=== PATIENT | female | born 1970 | race Caucasian/White ===

== ENCOUNTER 2018-05-24 07:45 | Day surgery (SDC) | payer BC ==
[~2018-05-24] VITALS: Ht 149.9 cm; Wt 55.0 kg
[2018-05-24] VITALS (13 sets, daily range): BP systolic 102–123; BP diastolic 56–68; PULSE 55–108; RESP 12–21; Ht 149.9 cm; Wt 55.0 kg
[~2018-05-24 07:45] MED LIST: CEFAZOLIN 2 GM/50 ML (PMX) 50 ML IVPB ONE; SOD CHLORIDE 0.9% 1,000 ML IV SCH
[2018-05-24] MEDS ORDERED: FER325 PO (11:31)
--- NOTE | 2018-05-24 14:14 | PREAC ---
Date/Time of Note Date/Time of Note DATE: 05/24/18 TIME: 14:13 Anesthesia Eval and Record Evaluation Time Pre-Procedure Interview DATE: 05/24/18 TIME: 14:13 Age 48 Sex female NPO: 8 hrs Preoperative diagnosis right breast DCIS Planned procedure right needle directed partial mastectomy Past Medical History Past Medical History: Includes Heme: Anemia Surgery & Anesthesia Issues No known issue Meds Anticoagulation: No Beta Savana within 24 hr: No Reason Beta Savana not given: Pt. not on B-Savana Reported Medications Ferrous Sulfate* (Ferrous Sulfate*) 325 Mg Tabec, 325 MG PO DAILY, TAB 05/24/18 Current Medications Sodium Chloride 1,000 ml @ 75 mls/hr [id number] IV ; Start 05/24/18 at 07:00; Stop 05/24/18 at 20:19 Meds reviewed: Yes Allergies Coded Allergies: No Known Drug Allergies (Verified Allergy, Unknown, 05/24/18) Allergies Reviewed: Yes Labs/Studies Labs Reviewed: Reviewed by anesthesiologist test: Negative Pre-procedure Exam Last vitals Vital Signs Date Temp Pulse Resp B/P (MAP) Pulse Ox O2 O2 Flow FiO2 Time Delivery Rate 05/24/18 99.1 55 18 123/59 100 Room Air 10:49 (80) Airway: Adequate mouth opening Mallampati: Mallampati I Teeth: Normal Lung: Normal Heart: Normal ASA Physical Status ASA physical status: 2 Emergency: None Planned Anesthetic General/MAC: ETT Pre-operative Attestations Prior to commencing anesthesia and surgery, the patient was re-evaluated, there was verification of: *The patient's identity *The results of appropriate recent lab work and preoperative vital signs *The above evaluation not changing prior to induction *Anesthetic plan, risk benefits, alternative and complications discussed with patient/family; questions answered; patient/family understands, accepts and wishes to proceed. BRANDON CARTY May 24, 2018 14:14
[2018-05-24] MEDS ORDERED: LIDOCAINE 100 MG SYRINGE ONE (14:19)
[2018-05-24] MEDS ORDERED: MIDAZOLAM 1 MG/ML 2 ML INJ ONE (14:19)
[2018-05-24] MEDS ORDERED: PROPOFOL 100 ML ONE (14:19)
[2018-05-24] MEDS ORDERED: DEXAMETHASONE 4 MG/ML 5 ML INJ ONE (14:19)
[2018-05-24] MEDS ORDERED: PHENYLephrine (100 MCG/ML) 5ML SYG ONE (14:19)
[2018-05-24] MEDS ORDERED: FENTAnyl 50 MCG/ML VIAL ONE (14:19)
[2018-05-24] MEDS ORDERED: CEFAZOLIN 1 GM INJ ONE (14:19)
[2018-05-24] MEDS ORDERED: ONDANSETRON 4 MG INJ ONE (14:19)
[2018-05-24] MEDS ORDERED: ROCURONIUM 50 MG INJ ONE (14:19)
[2018-05-24] MEDS ORDERED: METOCLOPRAMIDE 10 MG INJ IV PRN (14:30)
[2018-05-24] MEDS ORDERED: LABETALOL HCL 20MG INJ IV PRN (14:30)
[2018-05-24] MEDS ORDERED: ONDANSETRON 4 MG INJ IV PRN (14:30)
[2018-05-24] MEDS ORDERED: HYDROmorphONE 1 MG/5 ML IV SYRINGE IV PRN (14:30)
[2018-05-24] MEDS ORDERED: FENTAnyl 50 MCG/ML VIAL IV PRN ×2 (14:30)
[2018-05-24] MEDS ORDERED: hydrALAzine 20 MG INJ IV PRN (14:30)
[2018-05-24] MEDS ORDERED: MEPERIDINE 25 MG INJ IV PRN (14:30)
[2018-05-24] MEDS ORDERED: SUGAMMADEX SODIUM 200 MG/2 ML VIAL IV ONE (15:40)
--- NOTE | 2018-05-24 16:56 | SIPON ---
Date/Time of Note Date/Time of Note DATE: 05/24/18 TIME: 16:55 Operative Report Preoperative Diagnosis DCIS right breast Postoperative Diagnosis Same Operation/Procedure Performed Right needle directed partial mastectomy Surgeon see signature line painter assistant Dr Walter Anesthesia: general Estimated blood loss: 10 - 50 ml's Transfusion Required none Specimen Right partial mastectomy specimen Grafts/Implants none Complications none DENNYS GAY MD May 24, 2018 16:56
[2018-05-24] MEDS ORDERED: HYDROCODONE/APAP (7.5/325) TAB PO PRN (17:00)
--- NOTE | 2018-05-24 17:18 | PAC ---
Date/Time of Note Date/Time of Note DATE: 05/24/18 TIME: 17:17 Post-Anesthesia Notes Post-Anesthesia Note Last documented vital signs Vital Signs Date Temp Pulse Resp B/P (MAP) Pulse Ox O2 O2 Flow FiO2 Time Delivery Rate 05/24/18 99.1 55 18 123/59 100 Room Air 10:49 (80) Activity: WNL Respiratory function: WNL Cardiovascular function: WNL Mental status: Baseline Pain reasonably controlled: Yes Hydration appropriate: Yes Nausea/Vomiting absent: Yes BRANDON CARTY May 24, 2018 17:18
[2018-05-24] MEDS: HYDROmorphONE 1 MG/5 ML IV SYRINGE IV PRN ×2 (17:26→17:45)
--- NOTE | 2018-05-24 17:51 | OPR ---
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 OPERATION PERFORMED: Right needle-directed partial mastectomy. ANESTHESIA: General. ANESTHESIOLOGIST: Nurse medical manager, Keenan Gilbert CRNA SURGEON: Devon Black MD DRIER: Neto Walter MD INDICATIONS FOR PROCEDURE: The patient is a 48-year-old female who underwent screening mammography a nd ultrasonography was found to have a suspicious mass in her right breast. Subsequent core biopsy r evealed DCIS. She was counseled as to need for complete needle-directed excision of the lesion. She consented and was scheduled for surgery. DESCRIPTION OF PROCEDURE: On the morning of surgery, the patient presented to [facility] where she underwent localization of the lesion performed by attending radiologist, Dr. Darrell Arboleda. Subsequently, she was brought to the operating theater, placed under general a nesthesia. The right breast was prepped and draped in the usual sterile fashion. The localization n eedle was in the upper outer quadrant. A curvilinear incision was made in this area. Subcutaneous t issue was dissected with cautery. The skin edges were then elevated with skin hooks and wide circumf erential dissection of the tissue associated with the wire then took place using cautery. Specimen w as then elevated, transected, oriented, and sent for radiographic confirmation of capture. Capture w as confirmed. Specimen was then sent for permanent pathologic analysis. The wound was irrigated. M inimal bleeding was controlled with cautery, and the skin was then reapproximated with 4-0 Vicryl sut ures placed in deep dermal interrupted fashion, followed by final skin approximation with 5-0 PDS sut ures in subcuticular fashion. Dermabond was then applied. The patient tolerated the procedure well. The estimated blood loss was 20 mL. There were no complications and the patient was transported in stable condition to the recovery room where circumferential compression dressing was applied. Dictated By: DEVON LÓPEZ/NTS Conf#: [id number] DID#: [id number]
== END 2018-05-24 18:56 | disposition home or self-care (01) ==
LOC: SDS 07:45
PROVIDERS: ATTEND Surgery Surgical Oncology
DX: D05.11 Intraductal carcinoma in situ of right breast (principal)
CPT/HCPCS: 19301; 84703; 88307; 88341; 88342; J0690; J1100; J1170; J2001; J2250; J2405; J3010; Z7512; Z7610; J2370

== ENCOUNTER 2018-08-17 07:22 | Day surgery (SDC) | payer BC ==
[~2018-08-17] VITALS: Ht 149.9 cm; Wt 56.5 kg
[2018-08-17] VITALS (9 sets, daily range): BP systolic 102–124; BP diastolic 57–65; PULSE 60–96; RESP 12–21; Ht 149.9 cm; Wt 56.5 kg
[~2018-08-17 07:22] MED LIST changes: -CEFAZOLIN 2 GM/50 ML (PMX) 50 ML IVPB ONE; +FER325 PO; -SOD CHLORIDE 0.9% 1,000 ML IV SCH
--- NOTE | 2018-08-17 07:54 | HPN ---
Date/Time of Note Date/Time of Note DATE: 08/17/18 TIME: 07:54 Interval H&P Admission Note Pt. seen H&P reviewed: No system changes NAY APARICIO MD Aug 17, 2018 07:54
[2018-08-17] MEDS ORDERED: CEFAZOLIN 1 GM/50 ML (PMX) 50 ML IVPB ONE ×2 (08:00→10:24)
[2018-08-17] MEDS ORDERED: SOD CHLORIDE 0.9% 1,000 ML IV SCH (08:00)
[2018-08-17] MEDS ORDERED: POLYMYXIN/BACITRACIN 1L IRRIG IRR ONE (08:00)
[2018-08-17] MEDS ORDERED: LIDOCAINE 1%/EPI (1:100,000) (MDV) 20 ML ONE (09:23)
[2018-08-17] MEDS ORDERED: MIDAZOLAM 1 MG/ML 2 ML INJ ONE (09:23)
[2018-08-17] MEDS ORDERED: HEPARIN 1000 UNITS/ML 10 ML INJ ONE (09:23)
[2018-08-17] MEDS ORDERED: FENTAnyl 50 MCG/ML VIAL ONE (09:24)
[2018-08-17] MEDS ORDERED: HYDROCODONE/APAP (5/325) TAB PO PRN (11:30)
== END 2018-08-17 12:50 | disposition home or self-care (01) ==
LOC: SDS 07:22
PROVIDERS: ATTEND Internal Medicine Hematology & Oncology
DX: C50.911 Malignant neoplasm of unspecified site of right female breast (principal); R73.03 Prediabetes
CPT/HCPCS: 36561; 76942; C1788; J0690; J1644; J2250; J3010; Z7610

== ENCOUNTER 2018-09-17 09:55 | Day surgery (SDC) | payer BC ==
[2018-09-17] VITALS (13 sets, daily range): BP systolic 99–114; BP diastolic 59–68; PULSE 63–91; RESP 10–18; Ht 149.9 cm; Wt 58.7 kg
[~2018-09-17] VITALS: Ht 149.9 cm; Wt 58.7 kg
[~2018-09-17 09:55] MED LIST changes: +CEFAZOLIN 1 GM INJ ONE; -FER325 PO
--- NOTE | 2018-09-17 10:17 | PREAC ---
Date/Time of Note Date/Time of Note DATE: 09/17/18 TIME: 10:15 Anesthesia Eval and Record Evaluation Time Pre-Procedure Interview DATE: 09/17/18 TIME: 10:15 Age 48 Sex female NPO: 8 hrs Preoperative diagnosis right breast mass Planned procedure right axillary dissection and re excision of right sentinel lymph node Past Medical History Past Medical History: None Surgery & Anesthesia Issues No known issue Meds Anticoagulation: No Beta Savana within 24 hr: No Reason Beta Savana not given: Pt. not on B-Savana Meds reviewed: Yes Allergies Coded Allergies: No Known Drug Allergies (Verified Allergy, Unknown, 08/17/18) Allergies Reviewed: Yes Labs/Studies Labs Reviewed: Reviewed by anesthesiologist test: Negative Pre-procedure Exam Airway: Adequate mouth opening, Adequate thyromental dist Mallampati: Mallampati II Teeth: Normal Lung: Normal Heart: Normal ASA Physical Status ASA physical status: 2 Emergency: None Planned Anesthetic General/MAC: LMA Planned Pain Management Parenteral pain med Pre-operative Attestations Prior to commencing anesthesia and surgery, the patient was re-evaluated, there was verification of: *The patient's identity *The results of appropriate recent lab work and preoperative vital signs *The above evaluation not changing prior to induction *Anesthetic plan, risk benefits, alternative and complications discussed with patient/family; questions answered; patient/family understands, accepts and wishes to proceed. MAY DOHERTY September 17, 2018 10:17
[2018-09-17] MEDS ORDERED: ISOSULFAN BLUE 1% 5 ML INJ SC ONE (11:43)
[2018-09-17] MEDS ORDERED: ROCURONIUM 50 MG INJ ONE (12:32)
[2018-09-17] MEDS ORDERED: DEXAMETHASONE 4 MG/ML 5 ML INJ ONE (12:32)
[2018-09-17] MEDS ORDERED: PROPOFOL 100 ML ONE (12:32)
[2018-09-17] MEDS ORDERED: LIDOCAINE 2% (SDV) 5 ML INJ ONE (12:32)
[2018-09-17] MEDS ORDERED: ONDANSETRON 4 MG INJ ONE (12:33)
[2018-09-17] MEDS ORDERED: GLYCOPYRROLATE 0.4 MG INJ ONE (13:27)
[2018-09-17] MEDS ORDERED: NEOSTIGMINE 3 MG/3 ML SYRINGE ONE (13:27)
--- NOTE | 2018-09-17 13:46 | PAC ---
Date/Time of Note Date/Time of Note DATE: 09/17/18 TIME: 13:46 Post-Anesthesia Notes Post-Anesthesia Note Last documented vital signs Vital Signs Date Temp Pulse Resp B/P (MAP) Pulse Ox O2 O2 Flow FiO2 Time Delivery Rate 09/17/18 98.4 63 16 111/60 99 Room Air 1346 (77) Activity: WNL Respiratory function: WNL Cardiovascular function: WNL Mental status: Baseline Pain reasonably controlled: Yes Hydration appropriate: Yes Nausea/Vomiting absent: Yes MAY DOHERTY September 17, 2018 13:46
[2018-09-17] MEDS ORDERED: FENTAnyl 50 MCG/ML VIAL ONE (13:49)
[2018-09-17] MEDS ORDERED: MEPERIDINE 25 MG INJ ONE (13:49)
--- NOTE | 2018-09-17 13:49 | SIPON ---
Date/Time of Note Date/Time of Note DATE: 09/17/18 TIME: 13:48 Operative Report Preoperative Diagnosis Invasive cancer right breast need for reexcision partial mastectomy and sentinel lymph node biopsy Postoperative Diagnosis Same Operation/Procedure Performed Right reexcision partial mastectomy and axillary dissection utilizing sentinel lymph node technique Surgeon see signature line field assistant Dr Beatty Anesthesia: general Estimated blood loss: 10 - 50 ml's Transfusion Required none Specimen Reexcision partial mastectomy specimen and sentinel lymph node with additional axillary nodes Grafts/Implants none Complications none DENNYS GAY MD September 17, 2018 13:49
[2018-09-17] MEDS: FENTAnyl 50 MCG/ML VIAL IV PRN ×2 (13:58→14:05)
[2018-09-17] MEDS ORDERED: hydrALAzine 20 MG INJ IV PRN (14:00)
[2018-09-17] MEDS ORDERED: DIPHENHYDRAMINE 50 MG INJ IV PRN (14:00)
[2018-09-17] MEDS ORDERED: OXYCODONE/ACETAMINOPHEN (5/325) TAB PO PRN ×2 (14:00)
[2018-09-17] MEDS ORDERED: HYDROCODONE/APAP (7.5/325) TAB PO PRN (14:00)
[2018-09-17] MEDS ORDERED: MEPERIDINE 25 MG INJ IV PRN (14:00)
[2018-09-17] MEDS ORDERED: MIDAZOLAM 1 MG/ML 2 ML INJ IV PRN (14:00)
[2018-09-17] MEDS ORDERED: ALBUTEROL 0.083% (NEB) 2.5 MG/3 ML AMP HHN PRN (14:00)
[2018-09-17] MEDS ORDERED: HYDROmorphONE 1 MG/5 ML IV SYRINGE IV PRN ×3 (14:00)
[2018-09-17] MEDS ORDERED: LABETALOL HCL 20MG INJ IV PRN (14:00)
[2018-09-17] MEDS ORDERED: ONDANSETRON 4 MG INJ IV PRN (14:00)
[2018-09-17] MEDS ORDERED: FENTAnyl 50 MCG/ML VIAL IV PRN ×2 (14:00)
[2018-09-17] MEDS ORDERED: EPHEDrine SULFATE 50 MG/5 ML SYG IV PRN (14:00)
--- NOTE | 2018-09-17 14:54 | OPR ---
DATE OF OPERATION: 09/17/2018 PREOPERATIVE DIAGNOSES: Invasive cancer, right breast, need for reexcision partial mastectomy and se ntinel lymph node biopsy. POSTOPERATIVE DIAGNOSES: Invasive cancer, right breast, need for reexcision partial mastectomy and s entinel lymph node biopsy. OPERATION PERFORMED: Right reexcision partial mastectomy and axillary dissection utilizing sentinel lymph node technique. ANESTHESIA: General. ANESTHESIOLOGIST: Dr. Ramirez. SURGEON: Devon Black MD CREDIT CONTROL ADMINISTRATOR: Yohannes Beatty MD INDICATIONS FOR PROCEDURE: The patient is a 48-year-old female who was previously diagnosed with lina miguelito carcinoma in situ on core biopsy. She had a needle-directed excision of the DCIS which then on f inal pathology revealed invasive cancer with inadequate margins. The patient was counseled as to wilfrid sharma for reexcision and sentinel lymph node biopsy. She consented and was scheduled for surgery. DESCRIPTION OF PROCEDURE: The patient was brought to the operating theater, placed under general ane sthesia. The right breast was prepped and draped in usual sterile fashion. Approximately 3 to 4 mL of 1% Lymphazurin blue dye were then injected in the region of the previous tumor location. The randee st was gently massaged for 12 minutes. At this point, a 3 to 4 cm incision was made in the right axi llary hairline. Subcutaneous tissue was dissected with cautery down through the clavipectoral fascia . A dye-stained lymphatic was identified and traced to sentinel node. Two or 3 additional lymph nod es were then resected using the LigaSure device. Intraoperative analysis of the sentinel node by Dr. Beck did not reveal evidence of pathology; therefore, no further nodes were taken. The wound wa s irrigated. Minimal bleeding was controlled with cautery and the skin was then reapproximated with 4-0 Vicryl sutures in subcuticular fashion. Attention was then directed to performing the reexcision . Previous surgical incisional scar in the upper outer quadrant of the breast was reincised with 15- blade scalpel. Subcutaneous tissue was dissected with cautery. Skin edges were then elevated with s kin hooks and wide circumferential dissection of the previous biopsy cavity then took place down to t he fascia of the pectoralis major muscle. Specimen was then transected, oriented and sent for perman ent pathologic analysis. Minimal residual bleeding was controlled with cautery. The skin was then c losed with a deep dermal layer of 4-0 Vicryl sutures in interrupted fashion, followed by final skin a pproximation with 5-0 PDS sutures in subcuticular fashion and Dermabond was applied to both incisions . The patient tolerated the procedure well. The estimated blood loss was approximately 30 mL. Ther e were no complications and the patient was transported in stable condition to the recovery room wher e circumferential compression dressing was applied. Dictated By: DEVON LÓPEZ/MARTHA Conf#: [id number] DID#: [id number]
== END 2018-09-17 16:05 | disposition home or self-care (01) ==
LOC: SDS 09:55
PROVIDERS: ATTEND Surgery Surgical Oncology
DX: D05.11 Intraductal carcinoma in situ of right breast (principal); N60.21 Fibroadenosis of right breast; D24.1 Benign neoplasm of right breast
CPT/HCPCS: 19301; 38500; 38792; 84703; 88307; 88331; J0690; J1100; J2175; J2405; J2710; J3010; Z7512; Z7610; Q9968